=== PATIENT | male | born 1975 | race Two or more races ===

== ENCOUNTER 2016-09-03 21:35 | Emergency (ER) | payer OTHER ==
[2016-09-04] MEDS ORDERED: PENICILLIN V POTASSIUM 500 MG TABLET ONE (00:26)
== END 2016-09-04 00:39 | disposition home or self-care (01) ==
LOC: ED 21:35
DX: K08.89 Other specified disorders of teeth and supporting structures (principal); I10 Essential (primary) hypertension; F17.210 Nicotine dependence, cigarettes, uncomplicated